=== PATIENT | female | born 1980 | race African-American/Black ===

== ENCOUNTER 2017-01-28 08:26 | Emergency (ER) | payer OTHER ==
[~2017-01-28] VITALS: Ht 165.1 cm; Wt 64.0 kg
[2017-01-28 10:52] LABS: CLARITY URINE TURBID (CLEAR); COLOR URINE YELLOW (YELLOW); GLUCOSE URINE NEGATIVE (NEGATIVE); KETONES URINE TRACE (NEGATIVE); LEUKOCYTE ESTERASE URINE 1+ (NEGATIVE); NITRITE URINE NEGATIVE (NEGATIVE); OCCULT BLOOD URINE 1+ (NEGATIVE); PROTEIN URINE TRACE (NEGATIVE); SPECIFIC GRAVITY URINE 1.023 (1.005-1.030); UROBILINOGEN URINE 0.2 E.U./dL (0.2-1.0)
[2017-01-28] MEDS ORDERED: TETANUS, DIPHTHERIA, PERTUSSIS VAC/PF 0.5ML (>7YR OLD) IM ONE (11:15)
[2017-01-28 12:02] VITALS: BP 105/74
== END 2017-01-28 12:15 | disposition home or self-care (01) ==
LOC: ER 08:26
DX: S09.8XXA Other specified injuries of head, initial encounter (principal); S00.211A Abrasion of right eyelid and periocular area, initial encounter; M25.531 Pain in right wrist; M79.641 Pain in right hand; N39.0 Urinary tract infection, site not specified; Y04.0XXA Assault by unarmed brawl or fight, initial encounter; Y93.89 Activity, other specified; Y92.018 Other place in single-family (private) house as the place of occurrence of the external cause
CPT/HCPCS: 70450; 70486; 73080; 73110; 73130; 81001; 81025; 87086; 99285; Z7610